=== PATIENT | male | born 1965 | race Caucasian/White ===

== ENCOUNTER 2025-02-13 14:35 | Emergency (ER) | payer BC, OTHER ==
[2025-02-13] MEDS: Sodium Chloride 0.9% 10 ML Syringe FLUSH PRN (14:56)
[2025-02-13] MEDS: Sodium Chloride 0.9% 1,000 ML IV ONE ×3 (15:02→18:45)
[2025-02-13] MEDS: LORazepam 2 MG/ML SDV IVPUSH ONE ×2 (15:03→18:45)
[2025-02-13] MEDS: Ondansetron 4 MG/2 ML SDV IVPUSH ONE (15:03)
[2025-02-13 15:11] LABS: BASOPHILS PERCENT AUTO 0.4 % (0.3-3.8); EOSINOPHILS PERCENT AUTO 0.4 % (0.1-6.8); HEMATOCRIT 45.1 % (38.3-50.1); HEMOGLOBIN 15.8 g/dL (12.9-17.7); LYMPHOCYTES ABSOLUTE AUTO 1.3 x10-3/uL (0.5-4.5); LYMPHOCYTES PERCENT AUTO 18.6 % (15.8-45.3); MEAN CORPUSCULAR HEMOGLOBIN 31.3 pg (27.0-33.3); MEAN CORPUSCULAR HGB CONC 35.1 g/dL (28.7-35.3); MEAN CORPUSCULAR VOLUME 89.3 fL (80.8-98.7); MEAN PLATELET VOLUME 7.2 fL (6.7-11.0); MONOCYTES ABSOLUTE AUTO 0.7 x10-3/uL (0.0-1.2); MONOCYTES PERCENT AUTO 9.9 % (5.5-15.2); NEUTROPHILS ABSOLUTE AUTO 5.1 x10-3/uL (1.7-6.9); NEUTROPHILS PERCENT AUTO 70.7 % (40.3-71.8); PLATELET COUNT,PLT 175 x10(3)uL (117-477); RED BLOOD CELL COUNT 5.05 x10(6)uL (3.90-5.90); RED CELL DISTRIBUTION WIDTH 13.5 % (12.4-15.0); WHITE BLOOD CELL COUNT,WBC 7.2 x10-3/uL (3.2-10.1)
[2025-02-13 15:12] LABS: BLOOD UREA NITROGEN,BUN 10 mg/dL (7-18); CALCIUM 9.2 mg/dL (8.6-10.2); CARBON DIOXIDE,CO2 20 mmol/L (21-32); CHLORIDE,CL 100 mmol/L (100-110); ESTIMATED GFR 87 mL/min (>60); GLUCOSE RANDOM 101 mg/dL (80-116); POTASSIUM,K 3.9 mmol/L (3.5-5.3); SODIUM,NA 137 mmol/L (135-145)
[2025-02-13 15:18] LABS: ALANINE AMINOTRANSFERASE,ALT 72 U/L (12-36); ALBUMIN 3.9 g/dL (3.5-5.2); ALKALINE PHOSPHATASE 107 IU/L (56-112); ASPARTATE AMNIOTRANSFERASE,AST 62 IU/L (5-25); BILIRUBIN TOTAL 1.1 mg/dL (0.1-1.3); MAGNESIUM 1.5 mg/dL (1.8-2.5)
[2025-02-13 15:23] LABS: LACTIC ACID 5.4 mmol/L (0.4-2.0)
[2025-02-13] MEDS: Metoprolol Tartrate 5 MG/5 ML SDV IVPUSH ONE (16:56)
[2025-02-13] MEDS: Magnesium Sulfate 2 GM/50 mL 2 GM in Premix Bag 1 BAG IV ONE (18:09)
[2025-02-13] MEDS: Metoprolol Succinate 50 MG Tab.ER PO ONE (20:03)
[2025-02-13] MEDS: cefTRIAXone 1 GM Vial IVPUSH ONE (20:03)
[2025-02-13] MEDS: Sodium Chloride 0.9% 1,000 ML IV SCH (20:09)
[2025-02-13] MEDS: cefTRIAXone 1 GM Vial IM ONE (20:18)
== END 2025-02-13 20:38 ==
LOC: FB.ED 14:35
DX: F10.230 Alcohol dependence with withdrawal, uncomplicated (principal); I48.91 Unspecified atrial fibrillation; L03.311 Cellulitis of abdominal wall; E83.42 Hypomagnesemia; E86.0 Dehydration; I10 Essential (primary) hypertension; R74.8 Abnormal levels of other serum enzymes; Y90.9 Presence of alcohol in blood, level not specified
CPT/HCPCS: 36415; 73610; 80053; 80307; 83605; 83735; 85025; 86140; 93005; 93010; 96361; 96365; 96375; 96376; 99285; A9270; J0696; J2060; J2405; J3475; J3490; J7030